=== PATIENT | female | born 1940 | race Caucasian/White ===

== ENCOUNTER 2017-04-26 07:00 | Inpatient (IN) ==
[~2017-04-26 07:00] MED LIST: ACETAMINOPHEN 500 MG TABLET PO ONE; CLINDAMYCIN PB 900 MG/50 ML BAG IV ONE; EPINEPHrine 0.25 MG, BUPIVACAINE 0.25% PF 30 ML, MORPHINE SULFATE 15 MG, KETOROLAC INJ ... OPSITE ONE; FAMOTIDINE PB 20 MG/50 ML BAG IV ONE; LIDOCAINE 1% (10mg/ml) 2mL INJ PF SDV ID ONE; METOCLOPRAMIDE 10mg/2ml INJECTION IVP ONE; NOZIN NASAL SWAB NAS ONE; ONDANSETRON 4 MG/2 ML INJECTION IVP ONE; SALINE FLUSH 10ml SYRINGE IVF PRN; TRANEXAMIC ACID 1,000 MG in NS 100 ML IV ONE
[2017-04-26 08:36] VITALS: BMI 38.2
[2017-04-26] MEDS: LR 1,000 ML IV SCH ×4 (09:14→15:09)
[2017-04-26] MEDS ORDERED: MIDAZOLAM 2mg/2ml INJECTION ONE (09:23)
[2017-04-26] MEDS ORDERED: PROPOFOL 500 MG/50 ML VIAL IV ONE ×2 (09:23→12:31)
[2017-04-26] MEDS ORDERED: FentaNYL 100 MCG/2 ML INJECTION ONE (09:23)
[2017-04-26] MEDS ORDERED: VANCOMYCIN 1,000 MG INJECTION ONE (10:11)
--- NOTE | 2017-04-26 10:17 | Anesthesia Preoperative Report ---
Anesthesia Preoperative Record - Date and Time Date: 04/26/17 Preoperative Diagnosis: Lt TKA (RA) M17.12 NPO Since Date: 04/25/17 NPO Since Time: 22:00 Allergies/Adverse Reactions: Allergies Allergy/AdvReac Type Severity Reaction Status Date / Time ampicillin Allergy Unknown RASH Verified 04/26/17 08:42 erythromycin base Allergy Unknown Verified 04/26/17 08:42 Nluukid-Zco-Skf Reductase Allergy Unknown patient Verified 04/26/17 08:42 Inhibitor denies knowledge of this allergy Penicillins Allergy Verified 04/26/17 08:42 metronidazole AdvReac Intermediate Dizziness Verified 04/26/17 08:42 - Vital Signs Vital Signs: Temperature 97.7 F 04/26/17 08:35 Pulse Rate 77 04/26/17 08:42 Respiratory Rate 16 04/26/17 08:35 Blood Pressure 137/74 04/26/17 08:35 Pulse Oximetry 92 04/26/17 08:35 Height and Weight: Height 1.59 m Weight 96.4 kg Body Mass Index 38.2 - Medications Inpatient Medications: Current Medications Lactated Ringer's (Lactated Ringers) 1,000 mls @ 50 mls/hr IV .Q20H LILIANA Last Admin: 04/26/17 09:14 Dose: 50 mls/hr Sodium Chloride (Iv Flush) 10 - 80 ml IVF PRN PRN PRN Reason: [place] Home Medications: Home Medications Medication Instructions Recorded Confirmed Type sertraline 50 mg tablet 50 mg PO DAILY 04/05/17 04/21/17 History Famotidine [Pepcid] 20 mg PO HS 04/08/17 04/21/17 History Ibuprofen [Advil] 2 tab PO Q4H PRN 04/21/17 04/21/17 History Is Patient on Beta Millicent?: No - Medical History Respiratory: Reports: Sleep Apnea (pressumptive) Gastrointestional: Reports: Gastroesophageal Reflux Disease (controlled), Morbid Obesity Renal/Endocrine: Reports: Diabetes Mellitus Type 2 (impaired glucose) - Surgical History HEENT Surgeries: Reports: Tonsillectomy GI Surgery/Treatments: Reports: Cholecystectomy, Colonoscopy (sphincterotomy) Musculoskeletal Surgery/Tx: Reports: Knee Arthroscopy (right), Orthopedic Surgery (right bunionectomy), Total Knee Replacement (right) Reproductive Surgery/Treatment: Reports: Hysterectomy, Lumpectomy (left) Anesthesia Reactions: None Hx Family Anesthesia Reaction: No History of Motion Sickness: No - Social History Smoking Status: Never smoker Hx Chewing Tobacco Use: No Second Hand Exposure: No Substance Use Type: does not use Alcohol Intake Frequency: does not drink - Physical Exam Respiratory Exam: Present: lungs clear, bilateral breath sounds equal Cardiovascular Exam: Present: regular rate and rhythm - Airway Assessment Mallampati Score: III TMD: 3 Fingerbreadths Neck Extension: fair Overall Assessment: may be difficult intubation (borbidly obese, thick neck) - ASA ASA Score: 3 - Plan Anesthesia: General Inhalation Gases, Neuroaxial Regional/Trunk Block: Spinal Peripheral Nerve Block: Saphenous-Left - Discussion Discussion: Discussed risks/options/alternatives of anesthesia and questions answered. Patient consents. Nursing pain assessment noted. Present for Discussion: family member Attestation Statement: Prior to the delivery of any anesthetic medication, I examined the patient, developed the plan, obtained the patient's consent and discussed the risk and benefits of the procedure with the patient/guardian. - Additional Information Seen by Anesthesia: Yes
[2017-04-26] MEDS ORDERED: KETAMINE 500 MG/10 ML INJECTION ONE (11:08)
[2017-04-26] MEDS ORDERED: SALINE FLUSH 10ml SYRINGE ONE (11:26)
[2017-04-26] MEDS ORDERED: EPHEDRINE 50mg/ml INJECTION ONE (11:41)
[2017-04-26] MEDS ORDERED: ROPIVACAINE 0.5% (5mg/ml) 30ml INJ ONE (11:46)
[2017-04-26] MEDS ORDERED: PHENYLEPHRINE INJ 10 MG/ML VIAL IV ONE (12:42)
[2017-04-26] MEDS ORDERED: FentaNYL 100 MCG/2 ML INJECTION IVP PRN (12:48)
[2017-04-26] MEDS ORDERED: VANCOMYCIN 1,000 MG INJECTION IAR ONE (13:19)
--- NOTE | 2017-04-26 13:39 | History & Physical Update ---
- History and Physical Update Date: 04/26/17 Update: I evaluated this patient and found no changes in the history and clinical exam findings. The treatment plan and recommendations are also unchanged from the previous documentation.
--- NOTE | 2017-04-26 13:43 | Operative Note ---
- Procedure Side: left Preoperative Diagnosis: knee primary DJD Postoperative Diagnosis: Same as preoperative diagnosis. Operation: total knee arthroplasty Surgeon: Michael Archer MD [place] Cutter: Ethan Santos Complications: None. Regional/Trunk Block: Spinal Peripheral Nerve Block: Saphenous-Left Estimated Blood Loss: See Anesthesia Record. Fluids: Please see Anesthesia Record. Description of Procedure: Mrs. Noonan and her left knee were identified and marked in the preoperative holding area. She was brought back to the operating suite after a saphenous nerve block was placed in the preoperative holding area. Spinal anesthetic was administered and she was placed supine on the operating table. The left lower extremity was prepped and draped in my normal sterile fashion. Timeout was performed. The Precognate robot was used during the surgery. She had a partially correctable varus formerly with mild flexion contracture. A standard anterior midline incision followed by medial parapatellar arthrotomy was performed. Anterior fat pad and meniscus were removed. The patella was resurfaced to a size 29. I then placed a tibial array to 2 poke hole incisions in the mid tibia just medial to the crest. The pins were placed bicortically. I then placed a second femoral array again using bicortical pins in the distal femoral metaphysis medially. Checkpoints were then placed both in the femur and the tibia. The bone was then registered with the Precognate robot. Osteophytes were removed and gaps were captured both 90 and 0 with correction. We balanced her by adjusting component positioning using the Precognate software. We achieved 18 mm gaps all around. The Precognate robotic arm was then used to assist with the bone cuts. Posterior osteophytes and remaining meniscus were removed. Trial components were placed. We used a 3 femur and a 3 tibia with a 9 mm spacer. She tracked well and was well balanced throughout range of motion. The leg was exsanguinated and the tourniquet inflated to 250 mmHg. The bone was prepared for cementing and components were cemented into place and allowed to cure in extension. The tourniquet was let down and hemostasis obtained with electrocautery. The knee was ranged one more time to ensure good stability, balance and patellar tracking. 1 g of vancomycin powder was then placed into the knee joint. The capsulotomy was then closed with #1 Vicryl. I then left my licensed nursing assistant to close the subcutaneous tissue with 2-0 Vicryl. Running 4-0 Monocryl will be used in the subcuticular layer. Dermabond will be used on the skin followed by sterile dressing. After drapes are removed patient will be taken to recovery room under the care of anesthesia.
--- NOTE | 2017-04-26 14:01 | Anesthesia Procedure Note ---
Peripheral Nerve Blockade - Procedure Physician: Jaime Archer MD Date: 04/26/17 Discussion: Discussed risks/options/alternatives of anesthesia and questions answered. Patient consents. Nursing pain assessment noted. Block Start: 13:55 Block Stop: 13:57 Blocked Employed: Adductor Canal, Single Injection Indication: Post-Operative Pain Approach: Left Side Confirmed Position: Supine Patient: Consent, Risks/Benefits Discussed, Informed, Post Block Act. Discussed IV Sedation: No Sedation: Awake Initial Vital Signs: Temperature 97.7 F 04/26/17 08:35 Temperature Source Oral 04/26/17 08:35 Pulse Rate 76 04/26/17 08:35 Respiratory Rate 16 04/26/17 08:35 Blood Pressure 137/74 04/26/17 08:35 Blood Pressure Mean 95 04/26/17 08:35 Blood Pressure Position Sitting 04/26/17 08:35 Pulse Oximetry 92 04/26/17 08:35 Oxygen Delivery Method 04/26/17 08:35 Post Vital Signs: Temperature 97.7 F 04/26/17 08:35 Pulse Rate 77 04/26/17 08:42 Respiratory Rate 16 04/26/17 08:35 Blood Pressure 137/74 04/26/17 08:35 Pulse Oximetry 92 04/26/17 08:35 Ultrasound Used?: Yes - Nerve Simulator Muscle Response: No Paresthesia/Pain: None - Injectate Ropivacaine (%): 0.5 Ropivacaine (mL): 15 Was Epi 1:200,000 Used?: No Injection: Injection made incrementally with constant monitoring and aspiration every 5 ml
--- NOTE | 2017-04-26 14:20 | XRay Report ---
Indication: postoperative image PROCEDURE: XR knee LT 2V: Encounter: Initial Comparison: March 21, 2017 Findings: Postoperative changes of left total knee replacement are seen. There is expected postoperative subcutaneous gas. No evidence of hardware failure or acute fracture. No retained radiopaque surgical instruments or sponges. Overlying material causing artifact. Impression: New left total knee prosthesis without evidence of immediate complication. .
--- NOTE | 2017-04-26 14:35 | Anesthesia Postoperative Note ---
- Date and Time Date: 04/26/17 Time: 14:33 - Status Patient Participated in Evaluation: Patient Participated in Person Vital Signs: Temperature 98.4 F 04/26/17 13:51 Pulse Rate 74 04/26/17 14:30 Respiratory Rate 10 04/26/17 14:30 Blood Pressure 86/53 04/26/17 14:30 Pulse Oximetry 94 04/26/17 14:30 Respiratory Function: Airway Patent, Regular Respirations Cardiovascular Function: Regular Pulse Mental Status: Alert and Oriented Pain Intensity: 5 (left shoulder discomfort) Hydration: IV Infusing Complications During Recover: None Apparent Post Anesthesia Care Notes: moves bilat lower extremeties - Follow-Up Instructions Instructions: Per Surgeon
[2017-04-26] MEDS ORDERED: ONDANSETRON 4 MG/2 ML INJECTION IVP PRN (15:43)
[2017-04-26] MEDS ORDERED: LORazepam 1 MG TABLET PO PRN (15:43)
[2017-04-26] MEDS ORDERED: NOZIN NASAL SWAB NAS ONE (15:43)
[2017-04-26] MEDS ORDERED: DiphenhydrAMINE 50 MG/ML INJECTION IVP PRN (15:43)
[2017-04-26] MEDS: NS 1,000 ML IV SCH (15:48)
[2017-04-26] MEDS: ACETAMINOPHEN 325 MG TABLET PO SCH ×2 (16:44→21:22)
[2017-04-26] MEDS: NOZIN NASAL SWAB NAS SCH ×2 (16:45→21:22)
[2017-04-26] MEDS: Oxycodone *IR* 5 MG TABLET PO PRN ×3 (17:28→21:23)
[2017-04-26] MEDS: CLINDAMYCIN PB 900 MG/50 ML BAG IV SCH ×2 (17:31→23:39)
[2017-04-26] MEDS: ASPIRIN *EC* 325 MG TABLET PO SCH (21:22)
[2017-04-26] MEDS: SENNOSIDES 8.6 MG TABLET PO SCH (21:22)
[2017-04-26] MEDS: DOCUSATE SODIUM 100 MG CAPSULE PO SCH (21:23)
[2017-04-26] MEDS: FAMOTIDINE 20 MG TABLET PO SCH (21:23)
[2017-04-26] MEDS: DiphenhydrAMINE 25 MG CAPSULE PO PRN (21:29)
[2017-04-27] MEDS: CLINDAMYCIN PB 900 MG/50 ML BAG IV SCH (05:30)
[2017-04-27] MEDS: NS 1,000 ML IV SCH ×2 (05:30→18:33)
[2017-04-27] MEDS: NOZIN NASAL SWAB NAS SCH ×3 (05:30→21:09)
[2017-04-27] MEDS: Oxycodone *IR* 5 MG TABLET PO PRN ×2 (05:47→19:38)
--- NOTE | 2017-04-27 06:32 | Orthopedic Progress Note ---
Date: Subjective/Severity of Illness: Montse just got up and is tired. Denies CP or SOA. Her BPs are a little low. Urine output is hard to define as she missed the hat while urinating. She was up a couple times yesterday. No lightheadedness when in bed this AM but perhaps a little when she got up to the chair. Orthopedic Objective PO Vital signs: Temperature 96.1 F L 04/27/17 03:45 Pulse Rate 59 L 04/27/17 03:45 Respiratory Rate 18 04/27/17 03:45 Blood Pressure 97/53 04/27/17 03:45 Pulse Oximetry 94 04/27/17 05:49 Height and Weight: Height 5 ft 2.5 in Weight 212 lb 8.41 oz Body Mass Index 38.2 - Constitutional General Appearance: Present: alert, no acute distress - Respiratory Exam Present: non-labored - Extremities Exam Extremities: Present: pulses intact, normal capillary refill. Absent: calf tenderness - Surgical Site Incision: Mepilex dressing intact, no drainage (on Mepilex.), bloody drainage present (On the pin site. Changed by nursing last evening.) - Integumentary Exam Present: pink, warm, dry - Neurological Exam Present: no deficits - Psychiatric Exam Present: alert, normal affect - Labs Result Diagrams: 04/27/17 04:13 04/27/17 04:13 Abnormal lab results 04/27/17 Range/Units 04:13 Chloride 109 H (98-107) MEQ/L BUN 20.0 H (7-17) MG/DL Calcium 8.1 L (8.4-10.2) MG/DL H & H 04/27/17 Range/Units 04:13 Hgb 12.7 (12-16) GM/DL Hct 40.6 (36-46) % Orthopedic Assessment and Plan (1) Primary osteoarthritis of left knee Status: Acute Assessment and Plan: Current anti-coagulation protocol for VTE prophylaxis. IV bolus for hypotension. Monitor. She is not on any BP meds. SCD's. PT/OT services to improve independent function. Discharge Planning per Case Management. - Anticoagulation Therapy Anticoagulation: ASA 325 mg PO BID x6 weeks Hospital Course Summary Disclaimer: The visit summary below is not to be considered part of the above Progress Note.
[2017-04-27] MEDS: SERTRALINE 50 MG TABLET PO SCH (08:07)
[2017-04-27] MEDS: DOCUSATE SODIUM 100 MG CAPSULE PO SCH ×2 (08:07→20:43)
[2017-04-27] MEDS: ASPIRIN *EC* 325 MG TABLET PO SCH ×2 (08:07→20:44)
[2017-04-27] MEDS: ACETAMINOPHEN 325 MG TABLET PO SCH ×4 (08:07→20:44)
[2017-04-27] MEDS: POLYETHYL GLYCOL 3350 17gm PACKET PO SCH (08:08)
[2017-04-27] MEDS ORDERED: SENNOSIDES 8.6 MG TABLET PO PRN (13:40)
--- NOTE | 2017-04-27 14:11 | Orthopedic Progress Note ---
Date: Subjective/Severity of Illness: Montse just got up and is tired, dizzy, and has had left calf pain. She had shortness of breath and got diaphoretic on the walk back to her room from PT today. Nursing has tried to wean her from O2, but she still requires 1L to keep sats at 93%. She has mainly used Tylenol for pain, nurse reports one dose of Oxycodone at 0500 this AM. Her BPs are a little low. New reading just taken was systolic 107. She did get a NS bolus this AM. No lightheadedness when in bed this AM but perhaps a little when she got up to the chair. She denies chest pain. Orthopedic Objective PO Vital signs: Temperature 98.6 F 04/27/17 11:55 Pulse Rate 70 04/27/17 13:57 Respiratory Rate 16 04/27/17 11:55 Blood Pressure 107/64 04/27/17 13:57 Pulse Oximetry 92 04/27/17 11:55 Height and Weight: Height 5 ft 2.5 in Weight 227 lb 8.273 oz Body Mass Index 38.2 - Constitutional General Appearance: Present: alert, no acute distress - Respiratory Exam Present: non-labored - Cardiovascular Exam Present: pedal pulses intact. Absent: peripheral edema Capillary Refill: < 2-3 Seconds - Abdominal Exam Absent: tenderness - Extremities Exam Extremities: Present: pulses intact, normal capillary refill. Absent: calf tenderness - Surgical Site Incision: Mepilex dressing intact, no drainage (on Mepilex.), bloody drainage present (On the pin site. Changed by nursing last evening.) - Integumentary Exam Present: pink, warm, dry - Neurological Exam Present: no deficits - Psychiatric Exam Present: alert, normal affect - Wound Management Left Lower Knee Secondary Dressing: Mepilex - Labs Result Diagrams: 04/27/17 04:13 04/27/17 04:13 Abnormal lab results 04/27/17 Range/Units 04:13 Chloride 109 H (98-107) MEQ/L BUN 20.0 H (7-17) MG/DL Calcium 8.1 L (8.4-10.2) MG/DL H & H 04/27/17 Range/Units 04:13 Hgb 12.7 (12-16) GM/DL Hct 40.6 (36-46) % Orthopedic Assessment and Plan (1) Primary osteoarthritis of left knee Status: Acute Assessment and Plan: Current anti-coagulation protocol for VTE prophylaxis. Had IV bolus for hypotension. BP better, but she is dizzy. She is not on any BP meds. SCD's. PT/OT services to improve independent function. Doppler US to eval for DVT. Hospitalist consult. Discharge Planning per Case Management. - Anticoagulation Therapy Anticoagulation: ASA 325 mg PO BID x6 weeks Hospital Course Summary Disclaimer: The visit summary below is not to be considered part of the above Progress Note.
--- NOTE | 2017-04-27 15:15 | Ultrasound Report ---
Indication: Recent knee replacement with calf pain PROCEDURE: US venous doppler LE LT: Encounter: Initial Comparison: None Technique: Color Doppler duplex and grayscale sonographic imaging of the left lower extremity was performed. Findings: There is no evidence for acute deep venous thrombosis in the left thigh. Specifically, serial graded compression was performed from the inguinal ligament to the popliteal bifurcation, on the left thigh, demonstrating appropriate compressibility of the deep venous system. In addition, color and pulsed Doppler demonstrate appropriate spontaneous flow, variation with respiration, and augmentation with calf compression. At the ankle, normal flow is identified in the posterior tibial veins; these vessels are also normal in caliber. 1.7 cm small Ann's cyst or hematoma. Impression: No evidence of acute DVT in the left lower limb. .
--- NOTE | 2017-04-27 16:26 | Consult Note ---
<Yessica Duque - Last Filed: 04/27/17 16:15> Consult Information - Data of Consult Patient: new to practice Consult date: 04/27/17 Requesting Physician: Jaime Archer MD Primary Care Provider: Vivian Acevedo APRN Family Provider: Vivian Acevedo APRN - Consult Narrative Reason for consult: hypotension, hypoxia History of present illness: Patient is 76 yo WF who is s/p TLKA by Dr. Archer performed yesterday. Hospitalist services consulted by Dr. Archer as she has been hypotensive and hypoxic since surgery. She has already received over 5 liters of IV fluids with no significant improvement in her blood pressures. She has no history of hypotension or hypertension. Her only routine medication is sertraline. She has no h/o cardiac or lung disease. She states last evening she was able to get up and walk with therapy. She felt a bit "woozy" but nothing like she has felt today. She states she was working with therapy this morning and she felt hot and sweaty and lightheaded. She felt like she could have walked further in regard to her knee, but her other symptoms were severe enough she felt she needed to sit down. She has not had any chest pain or shortness of breath or cough. She states she ate a good breakfast but only had a muffin for lunch. She has not had any nausea or vomiting or abdominal pain. Her last bowel movement was yesterday morning. She has had a dull headache this afternoon. She has also noticed that her urine was a bit dark, but denies blood in the urine. No urinary symptoms. Blood pressures yesterday afternoon or averaging 90-100/50s. This morning she was still running in the 90s over 40s to 50s. She has had some higher readings this afternoon with a reading of 124/62 shortly after noon and her most recent blood pressure of 112/72. She reports her usual blood pressures are 120s to 130s /70s. She does not usually require oxygen at home. She has required 1-2 L to keep sats greater than 90%. [facility] Medical History Body mass index between 30-39, adult (Chronic Medical) Diverticula of colon (Chronic Medical) GERD (gastroesophageal reflux disease) (Chronic Medical) Hypercholesterolemia (Chronic Medical) Impaired fasting glucose (Chronic Medical) Mixed anxiety and depressive disorder (Chronic Medical) Osteoarthritis of knee (Chronic Medical) Surgical History: Vaginal Hysterectomy 1980. Tonsillectomy 194. Lap cholecystectomy 1991. Right bunionectomy 2006. Right knee arthroscopy with partial meniscectomy 11/2007. Right total knee replacement 02/2008. Colonoscopy with spincterotomy 2007. Left total knee replacement 04/2017. Breast biopsy- benign (1980) Family History: Father , age 80 COPD (chronic obstructive pulmonary disease) Mother , age 82 Cancer colon cancer age 72 Diabetes CHF (congestive heart failure) Paternal Aunt Alzheimers disease Daughter Muscular dystrophy Daughter Muscular dystrophy - Social History Smoking status: Never smoker Substance use type: does not use Alcohol intake frequency: does not drink Housing: house Household members: spouse Current occupational status: retired Current residence: Apartment/Private Home Social history: PCP-Vivian Acevedo APRN with Dr. Quincy Russell Review of Systems Comprehensive ROS: completed and no additional positive findings except those as stated - Constitutional Constitutional: Present: headache(s) (mild, dull) - Genitourinary Genitourinary: Present: other (dark, straw colored urine) - Musculoskeletal Musculoskeletal: Present: other (left knee pain) Medications Home Medications Medication Instructions Recorded Confirmed Type sertraline 50 mg tablet 50 mg PO DAILY 04/05/17 04/21/17 History Famotidine [Pepcid] 20 mg PO HS 04/08/17 04/21/17 History Ibuprofen [Advil] 2 tab PO Q4H PRN 04/21/17 04/21/17 History Allergies Allergy/AdvReac Type Severity Reaction Status Date / Time ampicillin Allergy Unknown RASH Verified 04/26/17 08:42 erythromycin base Allergy Unknown Verified 04/26/17 08:42 [id number] Reductase Allergy Unknown patient Verified 04/26/17 08:42 Inhibitor denies knowledge of this allergy Penicillins Allergy Verified 04/26/17 08:42 metronidazole AdvReac Intermediate Dizziness Verified 04/26/17 08:42 Exam Vital Signs: Temperature 98.6 F 04/27/17 11:55 Pulse Rate 70 04/27/17 13:57 Respiratory Rate 16 04/27/17 11:55 Blood Pressure 107/64 04/27/17 13:57 Pulse Oximetry 92 04/27/17 11:55 Height/Weight/BMI: Height 1.59 m Weight 103.2 kg Body Mass Index 38.2 - Constitutional Present: no acute distress, well nourished, well developed - Routine HEENT Exam Head: Present: normocephalic, atraumatic Eye: Present: EOMI ENT: Present: mucous membranes moist - Routine Neck Exam Present: supple. Absent: carotid bruit - Routine Respiratory Exam Present: CTA bilaterally, crackles (bilateral bases). Absent: wheezes - Routine Cardiovascular Exam Present: RRR, S1, S2. Absent: murmur - Routine Abdominal Exam Present: soft, normoactive bowel sounds, non distended. Absent: tenderness - Routine Extremities Exam Present: no edema, normal capillary refill - Routine Skin Exam Present: dry, warm - Routine Neurological Exam Present: alert, oriented X3, moving all extremities, normal tone. Absent: motor deficit, pronator drift, altered mental status - Routine Psychiatric Exam Present: normal affect, normal thought process, cooperative Results - Labs CBC & Chem 7: 04/27/17 04:13 04/27/17 04:13 - ECG Data Tracing #1 NSR - no ST changes. No previous for comparison. Assessment and Plan (1) Hypotension Current visit: Yes Status: Acute (2) Hypoxia Current visit: Yes Status: Acute Assessment and Plan: Assessment Hypotension Hypoxia s/p left total knee arthroplasty - 04/26/17 Diverticula of colon GERD Hypercholesterolemia Impaired fasting glucose Mixed anxiety and depressive disorder Osteoarthritis of knee Plan EKG and left lower extremity Doppler ordered by Dr. Archer reviewed and are negative. Check CBC, BMP and chest x-ray now. Her I&O's are inaccurate because she has missed the hat during voiding. She has had over 5 Liters of IVF's with weight gain of almost 7kg since admission. As BP's are currently improving, will hold on further fluids at this time. Will further discuss case and plan of care with Dr. Dwyer. Thank you for the consult. Hospital Course Summary Disclaimer: The visit summary below is not to be considered part of the above Progress Note. Hospital Course: Assessment Hypotension Hypoxia s/p left total knee arthroplasty - 04/26/17 Diverticula of colon GERD Hypercholesterolemia Impaired fasting glucose Mixed anxiety and depressive disorder Osteoarthritis of knee 04/27/17 - Hospitalist consult EKG and left lower extremity Doppler ordered by Dr. Archer reviewed and are negative. Check CBC, BMP and chest x-ray now. Her I&O's are inaccurate because she has missed the hat during voiding. She has had over 5 Liters of IVF's with weight gain of almost 7kg since admission. As BP's are currently improving, will hold on further fluids at this time. Will further discuss case and plan of care with Dr. Dwyer. Sepsis Assessment - Evaluation Sepsis screening result: No Definite Risk <Debra Dwyer - Last Filed: 04/27/17 17:55> Consult Information - Data of Consult Requesting Physician: Jaime Archer MD Primary Care Provider: Vivian Acevedo APRN Family Provider: Vivian Acevedo APRN [facility] Family History: Family History (Last Updated 04/05/17 @ 20:17 by Vivian Acevedo APRN) Father , age 80 COPD (chronic obstructive pulmonary disease) Mother , age 82 Cancer colon cancer age 72 Diabetes CHF (congestive heart failure) Paternal Aunt Alzheimers disease Daughter Muscular dystrophy Daughter Muscular dystrophy Exam Vital Signs: Temperature 97.9 F 04/27/17 16:20 Pulse Rate 74 04/27/17 16:20 Respiratory Rate 16 04/27/17 16:20 Blood Pressure 112/72 04/27/17 16:20 Pulse Oximetry 94 04/27/17 16:20 Height/Weight/BMI: Height 1.59 m Weight 103.2 kg Body Mass Index 38.2 Results - Labs CBC & Chem 7: 04/27/17 04:13 04/27/17 04:13 Assessment and Plan (1) Hypotension Current visit: Yes Status: Acute (2) Hypoxia Current visit: Yes Status: Acute Assessment and Plan: I have independently evaluated and examined this patient. I reviewed the chart, the patient's history, and the BOTTOM WHEELER/PA's documented findings as above. We discussed and formulated the assessment and plan as above with additions as below: Mrs. Noonan describes onset of feeling woozy, hot, and sweaty while ambulating back from the PT room earlier today. She had no chest pain, chest tightness, dyspnea, or nausea. She was not experiencing pain at the time reports pain control is been good today. Blood pressure was modestly depressed. Oxygen saturation has been intermittently low since surgery requiring supplemental oxygen. The patient is an obese female in no distress at this time. She continues to describe feeling woozy but is alert and fully alert with fluent speech. Heart tones are diminished but pulses are regular Respirations nonlabored, good inspiratory effort, breath sounds clear No lower extremity edema Left lower extremity venous Doppler negative for DVT, incidental notation of small Ann's cyst versus hematoma. EKG with sinus rhythm, no acute changes. Labs earlier today notable only for minor drop in hemoglobin compared to preop data but hemoglobin still 12.7. Normal electrolytes. Continue fluid replacement therapy, suspect transient hypotension due to combination of perioperative fluid shifts, narcotics, and anesthesia effect. No indication of acute pathology. Continue fluid replacement. Chest x-ray pending to exclude CHF but exam not suggestive. Change in weight noted although suspect one of the 2 weights is inaccurate. Reassess symptoms tomorrow. Hospital Course Summary Disclaimer: The visit summary below is not to be considered part of the above Progress Note.
[2017-04-27] MEDS: SENNOSIDES 8.6 MG TABLET PO SCH (20:43)
[2017-04-27] MEDS: FAMOTIDINE 20 MG TABLET PO SCH (20:44)
[2017-04-27] MEDS: DiphenhydrAMINE 25 MG CAPSULE PO PRN (21:13)
[2017-04-27] MEDS: NAPROXEN 220 MG TABLET PO PRN (22:19)
[2017-04-28] MEDS: NS 1,000 ML IV SCH (02:12)
[2017-04-28] MEDS: Oxycodone *IR* 5 MG TABLET PO PRN ×5 (02:48→23:13)
[2017-04-28] MEDS: NOZIN NASAL SWAB NAS SCH ×4 (06:13→22:39)
[2017-04-28] MEDS: POLYETHYL GLYCOL 3350 17gm PACKET PO SCH (07:59)
[2017-04-28] MEDS: DOCUSATE SODIUM 100 MG CAPSULE PO SCH ×2 (08:00→20:49)
[2017-04-28] MEDS: ASPIRIN *EC* 325 MG TABLET PO SCH ×2 (08:00→20:49)
[2017-04-28] MEDS: SERTRALINE 50 MG TABLET PO SCH (08:00)
[2017-04-28] MEDS: ACETAMINOPHEN 325 MG TABLET PO SCH ×4 (08:02→20:49)
[2017-04-28] MEDS ORDERED: APAP/CODEINE 300 MG/30 MG TABLET PO PRN ×2 (08:02→10:11)
--- NOTE | 2017-04-28 08:36 | Orthopedic Progress Note ---
Date: Subjective/Severity of Illness: Yissel is feeling a little better today, but is still "Woozy". Doppler US and ECG yesterday were negative. Dr. Dwyer evaluated her and continues to monitor. She did get a couple of dosed of Oxycodone last night. BP has improved with last systolic reading less than 100 at 11:55 last night. Orthopedic Objective PO Vital signs: Temperature 95.9 F L 04/28/17 07:27 Pulse Rate 66 04/28/17 07:27 Respiratory Rate 16 04/28/17 07:27 Blood Pressure 112/69 04/28/17 07:27 Pulse Oximetry 94 04/28/17 07:27 Height and Weight: Height 5 ft 2.5 in Weight 231 lb 7.766 oz Body Mass Index 38.2 - Constitutional General Appearance: Present: alert, no acute distress - Respiratory Exam Present: non-labored - Cardiovascular Exam Present: pedal pulses intact. Absent: peripheral edema - Abdominal Exam Absent: tenderness - Extremities Exam Extremities: Present: pulses intact, normal capillary refill. Absent: calf tenderness - Surgical Site Incision: Mepilex dressing intact, no drainage (on Mepilex.), bloody drainage present (On the pin site. Changed by nursing last evening.) - Integumentary Exam Present: pink, warm, dry - Neurological Exam Present: no deficits - Psychiatric Exam Present: alert, normal affect - Wound Management Left Lower Knee Secondary Dressing: Mepilex - Labs Result Diagrams: 04/28/17 04:08 04/28/17 04:08 Abnormal lab results 04/27/17 04/27/17 04/27/17 Range/Units 18:18 18:18 20:57 RBC (4.00-5.20) M/MM3 Hgb (12-16) GM/DL [place] % (Auto) 14.8 H (0-9.0) % Eos % (Auto) 4.2 H (0-4) % [place] # 1.0 H (0-0.8) T/MM3 Chloride 108 H (98-107) MEQ/L Anion Gap (5-15) MEQ/L BUN 21.0 H (7-17) MG/DL Calcium 8.2 L (8.4-10.2) MG/DL Specimen Hemolysis 38 H (0-25) Ur Specific [place] >=1.030 H (1.015-1.025) 04/28/17 04/28/17 Range/Units 04:08 04:08 RBC 3.89 L (4.00-5.20) M/MM3 Hgb 11.8 L (12-16) GM/DL [place] % (Auto) (0-9.0) % Eos % (Auto) (0-4) % [place] # (0-0.8) T/MM3 Chloride 110 H (98-107) MEQ/L Anion Gap 4 L (5-15) MEQ/L BUN (7-17) MG/DL Calcium 8.0 L (8.4-10.2) MG/DL Specimen Hemolysis (0-25) Ur Specific [place] (1.015-1.025) H & H 04/27/17 04/27/17 04/28/17 Range/Units 04:13 18:18 04:08 Hgb 12.7 12.4 11.8 L (12-16) GM/DL Hct 40.6 38.6 36.9 (36-46) % Orthopedic Assessment and Plan (1) Primary osteoarthritis of left knee Status: Acute Assessment and Plan: Current anti-coagulation protocol for VTE prophylaxis. BP is better, but still 'woozy'. I discontinued her Oxycodone and will start Tylenol #3 in an effort to address this. Re evaluate later today for discharge. PT/OT services to improve independent function. Discharge Planning per Case Management. - Anticoagulation Therapy Anticoagulation: ASA 325 mg PO BID x6 weeks Hospital Course Summary Disclaimer: The visit summary below is not to be considered part of the above Progress Note. Hospital Course: Assessment Hypotension Hypoxia s/p left total knee arthroplasty - 04/26/17 Diverticula of colon GERD Hypercholesterolemia Impaired fasting glucose Mixed anxiety and depressive disorder Osteoarthritis of knee 04/27/17 - Hospitalist consult EKG and left lower extremity Doppler ordered by Dr. Archer reviewed and are negative. Check CBC, BMP and chest x-ray now. Her I&O's are inaccurate because she has missed the hat during voiding. She has had over 5 Liters of IVF's with weight gain of almost 7kg since admission. As BP's are currently improving, will hold on further fluids at this time. Will further discuss case and plan of care with Dr. Dwyer.
--- NOTE | 2017-04-28 09:02 | XRay Report ---
INDICATION: hypoxia PROCEDURE: CHEST 2-VIEWS UPRIGHT (PA & LAT) Encounter: Initial COMPARISON: None FINDINGS: The lungs are clear without evidence of focal abnormal airspace opacity. There is no pleural effusion or pneumothorax. The heart size, mediastinal contours and pulmonary vascularity are within normal limits. There is no significant skeletal abnormality. IMPRESSION: No acute cardiopulmonary disease. .
[2017-04-28] MEDS: NAPROXEN 220 MG TABLET PO PRN (09:33)
--- NOTE | 2017-04-28 10:36 | Progress Note ---
<Yessica Duque - Last Filed: 04/28/17 10:30> Subjective: Patient is seen today sitting up in her chair in her room. She reports her pain is worse today. She still feels "spacey" when she is up, but no longer feels woozy when she is resting. Ortho switched her from oxycodone to Tylenol No. 3 to see if that would help with her "woozy" feeling. She doesn't feel that the Tylenol No. 3 helps as much with her pain. Her appetite is okay. She had a bowel movement earlier this morning. Objective Vital signs: Temperature 95.9 F L 04/28/17 07:27 Pulse Rate 66 04/28/17 07:27 Respiratory Rate 16 04/28/17 07:27 Blood Pressure 112/69 04/28/17 07:27 Pulse Oximetry 96 04/28/17 09:49 Height/Weight/BMI: Height 1.59 m Weight 105 kg Body Mass Index 38.2 - Constitutional Present: no acute distress, well nourished, well developed - Routine HEENT Exam Head: Present: normocephalic, atraumatic ENT: Present: mucous membranes moist - Routine Respiratory Exam Present: CTA bilaterally, crackles (bilateral bases). Absent: wheezes - Routine Cardiovascular Exam Present: RRR, S1, S2. Absent: murmur - Routine Abdominal Exam Present: soft, normoactive bowel sounds, non distended. Absent: tenderness - Routine Extremities Exam Present: no edema, normal capillary refill - Routine Skin Exam Present: dry, warm - Routine Neurological Exam Present: alert, oriented X3 - Routine Lymphatic Exam Lymphatic: Absent: adenopathy - Routine Psychiatric Exam Present: normal affect, normal thought process Results - Labs CBC & Chem 7: 04/28/17 04:08 04/28/17 04:08 Assessment and Plan (1) Hypotension Current visit: Yes Status: Acute (2) Hypoxia Current visit: Yes Status: Acute Assessment and Plan: Assessment Hypotension Hypoxia s/p left total knee arthroplasty - 04/26/17 Diverticula of colon GERD Hypercholesterolemia Impaired fasting glucose Mixed anxiety and depressive disorder Osteoarthritis of knee Plan IV fluids were held this morning. Her blood pressures are improved and stable at this point. Will continue to wean off oxygen. Assuming her blood pressures remain stable and she is doing well without oxygen , she would be medically stable to be discharged today. Sepsis Assessment - Evaluation Sepsis screening result: No Definite Risk Hospital Course Summary Disclaimer: The visit summary below is not to be considered part of the above Progress Note. Hospital Course: Assessment Hypotension Hypoxia s/p left total knee arthroplasty - 04/26/17 Diverticula of colon GERD Hypercholesterolemia Impaired fasting glucose Mixed anxiety and depressive disorder Osteoarthritis of knee 04/27/17 - Hospitalist consult EKG and left lower extremity Doppler ordered by Dr. Archer reviewed and are negative. Check CBC, BMP and chest x-ray now. Her I&O's are inaccurate because she has missed the hat during voiding. She has had over 5 Liters of IVF's with weight gain of almost 7kg since admission. As BP's are currently improving, will hold on further fluids at this time. Will further discuss case and plan of care with Dr. Dwyer. 04/28/17 IV fluids were held this morning. Her blood pressures are improved and stable at this point. Will continue to wean off oxygen. Assuming her blood pressures remain stable and she is doing well without oxygen , she would be medically stable to be discharged today. <Debra Dwyer - Last Filed: 04/28/17 14:40> Objective Vital signs: Temperature 96.9 F 04/28/17 11:11 Pulse Rate 74 04/28/17 14:09 Respiratory Rate 16 04/28/17 14:09 Blood Pressure 116/88 04/28/17 14:09 Pulse Oximetry 90 04/28/17 14:09 Height/Weight/BMI: Height 1.59 m Weight 105 kg Body Mass Index 38.2 Results - Labs CBC & Chem 7: 04/28/17 04:08 04/28/17 04:08 Assessment and Plan (1) Hypotension Current visit: Yes Status: Acute (2) Hypoxia Current visit: Yes Status: Acute Assessment and Plan: I have independently evaluated and examined this patient. I reviewed the chart, the patient's history, and the DIRECTOR OF SOFTWARE ENGINEERING/PA's documented findings as above. We discussed and formulated the assessment and plan as above with additions as below: Mrs. Noonan complains of increased pain in her knee today but no dyspnea. She is voiding well, "spacey" but not lightheaded, and has been able to ambulate. She was briefly on 1 L of oxygen this morning but subsequently been on room air. Patient is alert, respirations are nonlabored with good airflow and clear breath sounds. Cardiac rhythm is regular and extremities without edema. Chest x-ray yesterday unremarkable by my review and radiology report. Minor drop in hemoglobin-not worrisome. Doing well, medically stable for discharge although could potentially require short-term oxygen if continues to desaturate. Hospital Course Summary Disclaimer: The visit summary below is not to be considered part of the above Progress Note.
[2017-04-28] MEDS ORDERED: PSEUDOEPHEDRINE 30 MG TABLET PO PRN (11:17)
[2017-04-28] MEDS ORDERED: BISACODYL 10 MG SUPPOSITORY RECTALLY SCH (20:00)
[2017-04-28] MEDS: SENNOSIDES 8.6 MG TABLET PO SCH (20:49)
[2017-04-28] MEDS: FAMOTIDINE 20 MG TABLET PO SCH (20:50)
[2017-04-28] MEDS ORDERED: FALL RISK - PHARMACY CONSULT XX ONE (22:48)
[2017-04-29] MEDS: NAPROXEN 220 MG TABLET PO PRN (04:57)
[2017-04-29] MEDS: NOZIN NASAL SWAB NAS SCH ×3 (04:57→15:00)
--- NOTE | 2017-04-29 08:03 | Orthopedic Progress Note ---
Date: Subjective/Severity of Illness: Montse is just waking up. She is having moderate pain in the knee and is on some oxygen. No CP, cough or SOA. Still has some calf pain but her doppler was negative. Orthopedic Objective PO Vital signs: Temperature 98.2 F 04/29/17 04:17 Pulse Rate 66 04/29/17 04:17 Respiratory Rate 15 04/29/17 04:17 Blood Pressure 99/57 04/29/17 04:30 Pulse Oximetry 92 04/29/17 04:17 Height and Weight: Height 5 ft 2.5 in Weight 231 lb 7.766 oz Body Mass Index 38.2 - Constitutional General Appearance: Present: alert, no acute distress - Respiratory Exam Present: non-labored - Cardiovascular Exam Present: pedal pulses intact. Absent: peripheral edema - Abdominal Exam Absent: tenderness - Extremities Exam Extremities: Present: pulses intact, normal capillary refill, calf tenderness ( Doppler negative.) - Surgical Site Incision: Mepilex dressing intact, no drainage (on Mepilex.), bloody drainage present (On the pin site. Changed by nursing last evening.) - Integumentary Exam Present: pink, warm, dry - Neurological Exam Present: no deficits - Psychiatric Exam Present: alert, normal affect - Wound Management Left Lower Knee Secondary Dressing: Mepilex - Labs Result Diagrams: 04/29/17 04:15 04/28/17 04:08 Abnormal lab results 04/29/17 Range/Units 04:15 RBC 3.90 L (4.00-5.20) M/MM3 Hgb 11.8 L (12-16) GM/DL H & H 04/27/17 04/27/17 04/28/17 Range/Units 04:13 18:18 04:08 Hgb 12.7 12.4 11.8 L (12-16) GM/DL Hct 40.6 38.6 36.9 (36-46) % 04/29/17 Range/Units 04:15 Hgb 11.8 L (12-16) GM/DL Hct 37.2 (36-46) % Orthopedic Assessment and Plan (1) Primary osteoarthritis of left knee Status: Acute Assessment and Plan: Current anti-coagulation protocol for VTE prophylaxis. BP is better, but very tired this AM. Resumed her Oxycodone for better pain control Re evaluate later today for discharge. PT/OT services to improve independent function. Discharge Planning per Case Management. - Anticoagulation Therapy Anticoagulation: ASA 325 mg PO BID x6 weeks Hospital Course Summary Disclaimer: The visit summary below is not to be considered part of the above Progress Note. Hospital Course: Assessment Hypotension Hypoxia s/p left total knee arthroplasty - 04/26/17 Diverticula of colon GERD Hypercholesterolemia Impaired fasting glucose Mixed anxiety and depressive disorder Osteoarthritis of knee 04/27/17 - Hospitalist consult EKG and left lower extremity Doppler ordered by Dr. Archer reviewed and are negative. Check CBC, BMP and chest x-ray now. Her I&O's are inaccurate because she has missed the hat during voiding. She has had over 5 Liters of IVF's with weight gain of almost 7kg since admission. As BP's are currently improving, will hold on further fluids at this time. Will further discuss case and plan of care with Dr. Dwyer. 04/28/17 IV fluids were held this morning. Her blood pressures are improved and stable at this point. Will continue to wean off oxygen. Assuming her blood pressures remain stable and she is doing well without oxygen , she would be medically stable to be discharged today.
[2017-04-29 08:04] VITALS: PULSE 70; RESP 16
[2017-04-29] MEDS: DOCUSATE SODIUM 100 MG CAPSULE PO SCH (08:41)
[2017-04-29] MEDS: Oxycodone *IR* 5 MG TABLET PO PRN ×3 (08:41→14:59)
[2017-04-29] MEDS: ACETAMINOPHEN 325 MG TABLET PO SCH ×2 (08:42→12:47)
[2017-04-29] MEDS: ASPIRIN *EC* 325 MG TABLET PO SCH (08:42)
[2017-04-29] MEDS: POLYETHYL GLYCOL 3350 17gm PACKET PO SCH (08:42)
[2017-04-29] MEDS: SERTRALINE 50 MG TABLET PO SCH (08:42)
[2017-04-29 11:02] VITALS: BP 108/52; TEMP 96; O2SAT 90
--- NOTE | 2017-04-29 12:30 | Progress Note ---
<Yessica Duque - Last Filed: 04/29/17 12:25> Subjective: Patient seen sitting up in her chair during breakfast. She reports she is feeling better. She does well without oxygen while she is up. She reports that overnight she is still requiring a liter of oxygen. She has had to take Roxicodone for her pain, as naproxen and Tylenol with codeine were not successfully controlling her pain. She is no longer feeling "spacey." Objective Vital signs: Temperature 96.0 F L 04/29/17 11:01 Pulse Rate 70 04/29/17 11:01 Respiratory Rate 16 04/29/17 11:01 Blood Pressure 108/52 04/29/17 11:01 Pulse Oximetry 90 04/29/17 11:01 Height/Weight/BMI: Height 1.59 m Weight 106 kg Body Mass Index 38.2 - Constitutional Present: no acute distress, well nourished, well developed - Routine Respiratory Exam Present: CTA bilaterally. Absent: wheezes - Routine Cardiovascular Exam Present: RRR, S1, S2. Absent: murmur - Routine Abdominal Exam Present: soft, normoactive bowel sounds, non distended. Absent: tenderness - Routine Extremities Exam Present: edema (to surgical extremity), normal capillary refill - Routine Skin Exam Present: dry, warm - Routine Neurological Exam Present: alert, oriented X3 - Routine Lymphatic Exam Lymphatic: Absent: adenopathy - Routine Psychiatric Exam Present: normal affect, normal thought process Results - Labs CBC & Chem 7: 04/29/17 04:15 04/28/17 04:08 Assessment and Plan (1) Hypotension Current visit: Yes Status: Acute (2) Hypoxia Current visit: Yes Status: Acute Assessment and Plan: Assessment Hypotension-improving Hypoxia-improving s/p left total knee arthroplasty - 04/26/17 Diverticula of colon GERD Hypercholesterolemia Impaired fasting glucose Mixed anxiety and depressive disorder Osteoarthritis of knee Plan From a medical standpoint, she can be discharged home today. Dr. Dwyer plans to relate to patient's PCP recommendation for outpatient sleep study. Sepsis Assessment - Evaluation Sepsis screening result: No Definite Risk Hospital Course Summary Disclaimer: The visit summary below is not to be considered part of the above Progress Note. Hospital Course: Assessment Hypotension Hypoxia s/p left total knee arthroplasty - 04/26/17 Diverticula of colon GERD Hypercholesterolemia Impaired fasting glucose Mixed anxiety and depressive disorder Osteoarthritis of knee 04/27/17 - Hospitalist consult EKG and left lower extremity Doppler ordered by Dr. Archer reviewed and are negative. Check CBC, BMP and chest x-ray now. Her I&O's are inaccurate because she has missed the hat during voiding. She has had over 5 Liters of IVF's with weight gain of almost 7kg since admission. As BP's are currently improving, will hold on further fluids at this time. Will further discuss case and plan of care with Dr. Dwyer. 04/28/17 IV fluids were held this morning. Her blood pressures are improved and stable at this point. Will continue to wean off oxygen. Assuming her blood pressures remain stable and she is doing well without oxygen , she would be medically stable to be discharged today. 04/29/17 From a medical standpoint, she can be discharged home today. Dr. Dwyer plans to relate to patient's PCP recommendation for outpatient sleep study. <Debra Dwyer - Last Filed: 04/29/17 14:45> Objective Vital signs: Temperature 96.0 F L 04/29/17 11:01 Pulse Rate 70 04/29/17 11:01 Respiratory Rate 16 04/29/17 11:01 Blood Pressure 108/52 04/29/17 11:01 Pulse Oximetry 90 04/29/17 11:01 Height/Weight/BMI: Height 1.59 m Weight 106 kg Body Mass Index 38.2 Results - Labs CBC & Chem 7: 04/29/17 04:15 04/28/17 04:08 Assessment and Plan (1) Hypotension Current visit: Yes Status: Acute (2) Hypoxia Current visit: Yes Status: Acute Assessment and Plan: I have independently evaluated and examined this patient. I reviewed the chart, the patient's history, and the [employer]YGL[employer] INSPECTOR/PA's documented findings as above. We discussed and formulated the assessment and plan as above with additions as below: Mrs. Noonan reports that she's doing much better today. She longer feels woozy and denies dyspnea or lightheadedness. She's had no nausea. Pain control is improving and she feels that she can manage pain at home. She was on room air of the chair of the day yesterday but oxygen saturation again dropped overnight requiring 1 L supplemental O2. Blood pressure stable with reading of 97/53 at 4 AM-asymptomatic Respirations nonlabored, decreased airflow throughout, clear breath sounds Patient reports that she snores chronically but denies chronic fatigue or am headaches. Advised patient that she should discuss further evaluation nocturnal hypoxia with her primary care physician so nocturnal oximetry sleep study can be scheduled. Message sent to Dr. Russell/Vivian Acevedo APRN regarding events of hospitalization. Hemoglobin stable as his blood pressure. Hospital Course Summary Disclaimer: The visit summary below is not to be considered part of the above Progress Note.
--- NOTE | 2017-04-29 13:22 | Discharge Summary ---
Orthopedic Discharge Info Date of admission: 04/26/17 08:09 Anticipated date of discharge: 04/29/17 Primary care physician: Vivian Acevedo APRN Attending Physician: Jaime Archer MD Consults: 04/26/17 05:29 Consult to Anesthesiology [CONS] Routine Consulting Provider: GABY Stubbs Reason For Exam: Preoperative Assessment 04/26/17 15:43 Case Management Consult [CONS] Routine Reason For Exam: Discharge Planning DME-Walker [CONS] Routine Height: 5 ft 2.5 in Weight: 212 lb 8.41 oz Comment: change dressing in 2 weeks Total Joint Outpatient Therapy [CONS] Routine Comment: change dressing in 2 weeks 04/27/17 14:17 Physician Consult [CONS] Routine Consulting Provider: Debra Dwyer Reason For Exam: SOB, hypotension Ordering Provider has Notified Sanitary Inspector: No - Discharge Diagnosis (1) Primary osteoarthritis of left knee Status: Acute - Procedures Procedures: Procedures Left TKA - Laboratory Result Diagrams: 04/29/17 04:15 04/28/17 04:08 Laboratory: Abnormal lab results 04/29/17 Range/Units 04:15 RBC 3.90 L (4.00-5.20) M/MM3 Hgb 11.8 L (12-16) GM/DL H & H 04/27/17 04/27/17 04/28/17 Range/Units 04:13 18:18 04:08 Hgb 12.7 12.4 11.8 L (12-16) GM/DL Hct 40.6 38.6 36.9 (36-46) % 04/29/17 Range/Units 04:15 Hgb 11.8 L (12-16) GM/DL Hct 37.2 (36-46) % Orthopedic Discharge HPI - HPI Comments This patient was admitted for elective surgical tx of end stage degenerative joint disease that failed to respond to conservative treatment. Further details of this is found in the admission H&P. Orthopedic Hospital Course Hospital course: 04/29/17 13:19 After appropriate preoperative clearance and signing of operative consent, the patient was given IV antibiotics, according to orthopedic protocol. The patient was taken to the operating room and underwent elective left total knee arthroplasty. Following surgery, antibiotics were discontinued less than 24 hours according to joint protocol. Aspirin was initiated and SCDs added for DVT prevention. The dressing was clean, dry, and intact. Pain control was obtained via multimodal approach. Hospitalist was consulted for low BP and hypoxia. Venous doppler was negative and CXR negative. Her symptoms have resolved and she is doing much better at discharge. Bowel motivation addressed with scheduled and PRN medications. Early mobilization was initiated through PT services. Discharge arrangements made by a collaborative effort between the patient and Case Management. Follow-up is scheduled in 2-3 weeks. Discharge instructions given by orthopedic providers and nursing staff at discharge. Discharge condition was good. Ongoing care required?: Yes Discharge Plan - Med Rec/Dispo Referrals/Follow Up: Jaime Archer MD [Physician] - 05/18/17 10:00 am [place] Instructions: [facility] [place] Postop Instructions Additional Instructions: Jason'kyra Foster from [place] will contact you to set up home health for physical therapy. Prescriptions: New Aspirin *EC* [Ecotrin] 325 mg PO BID #90 tab Naproxen [Aleve] 440 mg PO BID PRN tablet PRN Reason: Pain Oxycodone *Ir* [Roxicodone *Ir*] 5 - 15 mg PO Q3H PRN #60 tab PRN Reason: Pain Acetaminophen [Tylenol] 650 mg PO QID tablet Docusate Sodium [Colace] 100 mg PO BID capsule Continue Famotidine [Pepcid] 20 mg PO HS Ibuprofen [Advil] 2 tab PO Q4H PRN PRN Reason: Pain sertraline 50 mg tablet 50 mg PO DAILY - Disposition 01 Discharged Home, Self-Care
== END 2017-04-29 15:20 | disposition home health service (06) | DRG 470 ==
LOC: SRG 08:09
PROVIDERS: ADMIT Orthopaedic Surgery; ATTEND Orthopaedic Surgery